=== PATIENT | female | born 1980 | race Caucasian/White ===

== ENCOUNTER 2017-09-21 06:32 | Day surgery (SDC) | payer MEDICARE, MEDICAID ==
[~2017-09-21 06:32] MED LIST: Lactated Ringers 1,000 ML IV SCH
[2017-09-21] MEDS ORDERED: Lactated Ringers 1,000 ML IV SCH (07:00)
[2017-09-21] MEDS ORDERED: fentaNYL 100 MCG/2 ML SDV ONE (07:42)
[2017-09-21] MEDS ORDERED: Midazolam 1 MG/ML 2 ML SDV ONE (07:42)
[2017-09-21] MEDS ORDERED: Propofol 200 MG/20 ML SDV ONE (07:42)
--- NOTE | 2017-09-21 08:28 | OR ---
DATE OF PROCEDURE: 09/21/2017 PREOPERATIVE DIAGNOSES: Nausea and vomiting. POSTOPERATIVE DIAGNOSES: Mild gastritis, nausea, and vomiting. PROCEDURE: Esophagogastroduodenoscopy with antral biopsies for CLOtest, sent for pathology to look for Helicobacter pylori. SURGEON: Noe Castañeda MD. ANESTHESIA: IV anesthesia with monitored anesthesia care. INDICATION: This 37-year-old white female is referred for upper endoscopy because of nausea and vomiting. She has had a cholecystectomy in the past. I counseled her for upper endoscopy with possible biopsy including risks and alternatives, and she gave her informed consent to proceed. PROCEDURE IN DETAIL: The patient was placed in the left lateral decubitus position. IV anesthesia was administered by the Anesthesia Service. Time-out was held. The flexible video Olympus upper endoscope was passed through her mouth, down her esophagus, and into her stomach. We did encounter bile in her stomach. We aspirated this free. The scope was passed through the pylorus into the duodenum reaching its third portion. The scope was then slowly withdrawn, examining the mucosa throughout. The duodenal mucosa appeared unremarkable. The scope was brought up through the pylorus; there was a fine erythema present and a couple areas of brighter erythema suggestive of mild gastritis. We obtained antral biopsies for CLOtest, sent tissue for pathology to look for Helicobacter pylori. The scope was retroflexed, the most proximal stomach appeared unremarkable. The scope was straightened and brought up to the GE junction. This appeared unremarkable. The scope was then brought up through the unremarkable appearing esophagus and was removed. She tolerated the procedure well. Noe Castañeda MD /[id number] MTDD
[2017-09-21 08:44] VITALS: BP 105/65
== END 2017-09-21 08:56 | disposition home or self-care (01) ==
LOC: JP.SDS 06:32
PROVIDERS: ATTEND Surgery
DX: K29.50 Unspecified chronic gastritis without bleeding (principal); K31.9 Disease of stomach and duodenum, unspecified; I10 Essential (primary) hypertension; E11.9 Type 2 diabetes mellitus without complications; E66.9 Obesity, unspecified; E03.9 Hypothyroidism, unspecified; F41.9 Anxiety disorder, unspecified; F32.9 Major depressive disorder, single episode, unspecified; Z88.8 Allergy status to other drugs, medicaments and biological substances
CPT/HCPCS: 43239; 81025; 82962; 87081; J2250; J2704; J3010; J7120; 88305; 88342

== ENCOUNTER 2018-10-26 16:53 | Emergency (ER) | payer MEDICARE, MEDICAID ==
[2018-10-26 17:06] VITALS: BP 138/85
--- NOTE | 2018-10-26 17:32 | EDM.PDOC ---
<Lorna Loyd N - Last Filed: 10/26/18 17:27> ED HPI GENERAL MEDICAL PROBLEM - General Chief Complaint: ENT Problem Stated Complaint: EARS HURT Time Seen by Provider: 10/26/18 17:20 Source of Information: Reports: Patient History Limitations: Reports: No Limitations - History of Present Illness INITIAL COMMENTS - FREE TEXT/NARRATIVE: Prabha is a 38-year-old female who presents to the ER with complaints of bilateral ear pressure, throbbing, and a sensation of fullness for the past 4-5 days. Reports a complicated history of ear infections in the past with tympanic tube placement as a child. She has been feeling well otherwise. Denies any acute changes in hearing or ear discharge. No fevers, chills, or upper respiratory symptoms. She has been taking Ibuprofen and acetaminophen with some relief of symptoms. 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 Bilateral Ear Pain Score (Numeric/FACES): 4 - Related Data Allergies Allergy/AdvReac Type Severity Reaction Status Date / Time codeine AdvReac Intermediate gi Verified 09/04/18 20:55 intolerance Home Meds: Home Meds Metoprolol Tartrate [Lopressor] 100 mg PO BID 06/26/13 [History] Levothyroxine Sodium 112 mcg PO DAILY 12/22/15 [History] Insulin Degludec [Tresiba Flextouch U-100] 96 units SUBCUT DAILY 01/14/16 [ History] Omeprazole 40 mg PO DAILY 01/14/16 [History] atorvaSTATin [Lipitor] 20 mg PO DAILY 01/14/16 [History] Lisinopril/Hydrochlorothiazide [Lisinopril-Hctz 20-12.5 mg Tab] 1 tab PO BID 12/18 [History] ARIPiprazole [Abilify] 15 mg PO DAILY 09/17/17 [History] Dulaglutide [Trulicity] 1.5 mg SQ WEEKLY 09/17/17 [History] Escitalopram [Lexapro] 10 mg PO DAILY 09/17/17 [History] Venlafaxine [Effexor XR] 150 mg PO DAILY 09/17/17 [History] Zolpidem Tartrate [Ambien] 5 mg PO ASDIRECTED PRN 09/17/17 [History] buPROPion HCl [Wellbutrin Xl] 1 tab PO DAILY 09/17/17 [History] clonazePAM [Clonazepam] 1 mg PO ASDIRECTED PRN 09/17/17 [History] lamoTRIgine [Lamictal] 200 mg PO DAILY 09/17/17 [History] Past Medical History HEENT History: Reports: Other (See Below) Other HEENT History: No teeth, has dentures, not in Cardiovascular History: Reports: High Cholesterol, Hypertension Respiratory History: Reports: Bronchitis, Recurrent Gastrointestinal History: Reports: Chronic Constipation, Colon Polyp, GERD, Other (See Below) Other Gastrointestinal History: constipation Genitourinary History: Reports: None 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 Musculoskeletal History: Reports: Back Pain, Chronic Neurological History: Reports: Migraines Psychiatric History: Reports: Anxiety, Bipolar, Depression, Panic Attack, Suicide Attempt, Suicidal Ideation Endocrine/Metabolic History: Reports: Diabetes, Type II, Hypothyroidism, IDDM, Obesity/BMI 30+ Hematologic History: Reports: Anemia - Infectious Disease History Infectious Disease History: Reports: Chicken Pox - Past Surgical History HEENT Surgical History: Reports: Myringotomy w Tube(s), Oral Surgery, Tonsillectomy Cardiovascular Surgical History: Reports: None Respiratory Surgical History: Reports: None GI Surgical History: Reports: Cholecystectomy, Colonoscopy Female Surgical History: Reports: Section Endocrine Surgical History: Reports: None Neurological Surgical History: Reports: Lumbar Spine Musculoskeletal Surgical History: Reports: None Social & Family History - Family History Family Medical History: Noncontributory - Tobacco Use Smoking Status *Q: Heavy Tobacco Smoker Years of Tobacco use: 16 Packs/Tins Daily: 1 - Caffeine Use Caffeine Use: Reports: Soda - Recreational Drug Use Recreational Drug Use: No - Living Situation & Occupation Living situation: Reports: with Significant Other ED ROS ENT - Review of Systems Review Of Systems: See Below Constitutional: Reports: No Symptoms. Denies: Fever, Chills, Malaise, Weakness , Decreased Appetite HEENT: Reports: Ear Pain. Denies: Ear Discharge, Eye Discharge, Hearing Loss, Rhinitis, Throat Pain, Vision Change Respiratory: Reports: No Symptoms. Denies: Shortness of Breath, Cough Cardiovascular: Reports: No Symptoms. Denies: Chest Pain, Palpitations Endocrine: Reports: No Symptoms GI/Abdominal: Reports: No Symptoms. Denies: Abdominal Pain, Constipation, Diarrhea, Decreased Appetite : Reports: No Symptoms Musculoskeletal: Reports: No Symptoms Neurological: Reports: No Symptoms Psychiatric: Reports: No Symptoms ED EXAM, ENT - Physical Exam Exam: See Below Exam Limited By: No Limitations General Appearance: Alert, WD/WN, No Apparent Distress Eye Exam: Bilateral Eye: EOMI, PERRL Ears: Normal External Exam, Normal Canal, Hearing Grossly Normal. No: Auricular Tenderness, Mastoid Swelling, Mastoid Tenderness, Canal Foreign Body Nose: Normal Inspection, Normal Mucousa, No Blood Mouth/Throat: Normal Inspection, Normal Gums, Normal Lips, Normal Oropharynx, Normal Teeth Head: Atraumatic, Normocephalic Neck: Normal Inspection, Supple, Non-Tender Respiratory/Chest: No Respiratory Distress, Decreased Breath Sounds Cardiovascular: Regular Rate, Rhythm, No Gallop, No Murmur, No Rub GI/Abdominal: Normal Bowel Sounds, Soft, Non-Tender, No Organomegaly, No Distention, No Abnormal Bruit, No Mass Neurological: Alert, Oriented, Normal Cognition, Normal Gait Psychiatric: Normal Affect, Normal Mood Lymphatic: No Adenopathy (Anterior and posterior cervical chains) Course - Vital Signs Last Recorded V/S: Last Vital Signs Temp 35.9 C 10/26/18 17:15 Pulse 62 10/26/18 17:15 Resp 16 10/26/18 17:15 BP 138/85 10/26/18 17:15 Pulse Ox 97 10/26/18 17:15 Departure - Departure Disposition: Home, Self-Care 01 Clinical Impression: Serous otitis media - Discharge Information Instructions: Otitis Media, Adult, [id number] Referrals: Kerrie Marin PA [Primary Care Provider] - Forms: ED Department Discharge Care Plan Goals: chew gum and try to move the drums, amoxicill 500mg qid, appt with ENt next sun. zyrtec 1 tab daily-- 10 mg. <Kika Olvera - Last Filed: 10/27/18 07:32> ED ROS ENT - Review of Systems Review Of Systems: See Below ED EXAM, ENT - Physical Exam Exam: See Below Course - Re-Assessments/Exams Free Text/Narrative Re-Assessment/Exam: 10/26/18 17:38 ears were checked and she did appear to have some purulent material behind the drum The drums did not look red, She does have swollen nodes under the ears. Her sinuses are not tender. Departure - Departure Time of Disposition: 17:40 Condition: Fair
== END 2018-10-26 17:46 | disposition home or self-care (01) ==
LOC: JP.ED 16:53
DX: H65.93 Unspecified nonsuppurative otitis media, bilateral (principal); E78.00 Pure hypercholesterolemia, unspecified; I10 Essential (primary) hypertension; F41.9 Anxiety disorder, unspecified; F32.9 Major depressive disorder, single episode, unspecified; E11.9 Type 2 diabetes mellitus without complications; E03.9 Hypothyroidism, unspecified; F17.210 Nicotine dependence, cigarettes, uncomplicated; Z88.5 Allergy status to narcotic agent; Z79.4 Long term (current) use of insulin
CPT/HCPCS: 99283

== ENCOUNTER 2019-05-02 21:54 | Emergency (ER) | payer MEDICARE, MEDICAID ==
[2019-05-02 22:14] VITALS: BP 110/69
--- NOTE | 2019-05-02 22:37 | EDM.PDOC ---
ED HPI GENERAL MEDICAL PROBLEM - General Chief Complaint: General Stated Complaint: DIABETIC Time Seen by Provider: 05/02/19 22:30 Source of Information: Reports: Patient History Limitations: Reports: No Limitations - History of Present Illness INITIAL COMMENTS - FREE TEXT/NARRATIVE: 31-year-old female with upper abdominal pain for the past couple of days. Also some persistent nausea and occasional vomiting. No diarrhea, actually she has chronic constipation and spent taking a laxative without relief salts. No fevers or chills. Pain is mostly across the upper abdomen and somewhat into the back. Onset: Unknown/Unsure Duration: Day(s): (Symptoms are chronic but worse the last few days) Location: Reports: Abdomen Worsens with: Reports: None Associated Symptoms: Reports: Malaise, Nausea/Vomiting. 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) Upper Abdomen Pain Score (Numeric/FACES): 4 - Related Data Allergies Allergy/AdvReac Type Severity Reaction Status Date / Time codeine AdvReac Intermediate gi Verified 05/02/19 22:12 intolerance Home Meds: Home Meds Metoprolol Tartrate [Lopressor] 100 mg PO BID 06/26/13 [History] Levothyroxine Sodium 112 mcg PO DAILY 12/22/15 [History] Insulin Degludec [Tresiba Flextouch U-100] 98 units SUBCUT DAILY 01/14/16 [ History] Omeprazole 40 mg PO DAILY 01/14/16 [History] atorvaSTATin [Lipitor] 20 mg PO DAILY 01/14/16 [History] Lisinopril/Hydrochlorothiazide [Lisinopril-Hctz 20-12.5 mg Tab] 1 tab PO BID 12/18 [History] Dulaglutide [Trulicity] 1.5 mg SQ WEEKLY 09/17/17 [History] Zolpidem Tartrate [Ambien] 5 mg PO ASDIRECTED PRN 09/17/17 [History] lamoTRIgine [Lamictal] 200 mg PO BID 09/17/17 [History] Amphetamine/Dextroamphetamine [Adderall XR] 30 mg PO DAILY 05/02/19 [History] Buprenorphine HCl/Naloxone HCl [Suboxone 4 mg-1 mg Sl Film] 1 each SL DAILY [History] Gabapentin [Neurontin] 300 mg PO TID PRN 05/02/19 [History] Loratadine [Claritin] 10 mg PO DAILY 05/02/19 [History] Metoclopramide HCl 10 mg PO QID 05/02/19 [History] Pregabalin [Lyrica] 100 mg PO QID 05/02/19 [History] metFORMIN HCl [Metformin HCl ER] 500 mg PO BID 05/02/19 [History] Past Medical History HEENT History: Reports: Other (See Below) Other HEENT History: No teeth, has dentures, not in Cardiovascular History: Reports: High Cholesterol, Hypertension Respiratory History: Reports: Bronchitis, Recurrent Gastrointestinal History: Reports: Chronic Constipation, Colon Polyp, GERD, Other (See Below) Other Gastrointestinal History: constipation Genitourinary History: Reports: None 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 Musculoskeletal History: Reports: Back Pain, Chronic Neurological History: Reports: Migraines Psychiatric History: Reports: Anxiety, Bipolar, Depression, Panic Attack, Suicide Attempt, Suicidal Ideation Endocrine/Metabolic History: Reports: Diabetes, Type II, Hypothyroidism, IDDM, Obesity/BMI 30+ Hematologic History: Reports: Anemia - Infectious Disease History Infectious Disease History: Reports: Chicken Pox - Past Surgical History HEENT Surgical History: Reports: Myringotomy w Tube(s), Oral Surgery, Tonsillectomy Cardiovascular Surgical History: Reports: None GI Surgical History: Reports: Cholecystectomy, Colonoscopy Female Surgical History: Reports: Section Endocrine Surgical History: Reports: None Neurological Surgical History: Reports: Lumbar Spine Musculoskeletal Surgical History: Reports: None Social & Family History - Family History Family Medical History: Noncontributory - Tobacco Use Smoking Status *Q: Current Every Day Smoker Years of Tobacco use: 20 Packs/Tins Daily: 0.5 Used Tobacco, but Quit: No Second Hand Smoke Exposure: Yes - Caffeine Use Caffeine Use: Reports: Soda - Alcohol Use Days Per Week of Alcohol Use: 0 - Recreational Drug Use Recreational Drug Use: Yes Recreational Drug Type: Reports: Marijuana/Hashish Recreational Drug Use Frequency: Monthly - Living Situation & Occupation Living situation: Reports: with Significant Other ED ROS GENERAL - Review of Systems Review Of Systems: See Below Constitutional: Reports: Malaise. Denies: Fever, Chills HEENT: Reports: No Symptoms Respiratory: Denies: Shortness of Breath Cardiovascular: Denies: Chest Pain GI/Abdominal: Reports: Abdominal Pain, Constipation, Nausea, Vomiting. Denies: Diarrhea : Reports: No Symptoms Neurological: Reports: Headache (Intermittent mild headache) Psychiatric: Reports: Anxiety, Depression ED EXAM, GENERAL - Physical Exam Exam: See Below Exam Limited By: No Limitations General Appearance: Alert, No Apparent Distress Eye Exam: Bilateral Eye: Normal Inspection Head: Atraumatic Respiratory/Chest: No Respiratory Distress, Lungs Clear Cardiovascular: Regular Rate, Rhythm GI/Abdominal: Soft (Some tenderness to), Tender (Some tenderness to palpation across the upper abdomen but no focal tenderness, guarding or rebound) Course - Vital Signs Last Recorded V/S: Last Vital Signs Temp 96.2 F 05/02/19 22:28 Pulse 69 05/02/19 22:28 Resp 16 05/02/19 22:28 BP 110/69 05/02/19 22:28 Pulse Ox 95 05/02/19 22:28 - Orders/Labs/Meds Labs: Laboratory Tests 05/02/19 05/02/19 05/02/19 Range/Units 22:40 22:40 22:47 WBC 12.7 H (4.5-11.0) K/uL RBC 4.42 (3.30-5.50) M/uL Hgb 13.4 D (12.0-15.0) g/dL Hct 41.4 (36.0-48.0) % MCV 94 (80-98) fL MCH 30 (27-31) pg MCHC 32 (32-36) % Plt Count 298 (150-400) K/uL Neut % (Auto) 49 (36-66) % Lymph % (Auto) 35 (24-44) % Rolette % (Auto) 10 H (2-6) % Eos % (Auto) 5 H (2-4) % Baso % (Auto) 1 (0-1) % Sodium 136 L (140-148) mmol/L Potassium 4.1 (3.6-5.2) mmol/L Chloride 99 L (100-108) mmol/L Carbon Dioxide 24 (21-32) mmol/L Anion Gap 17.1 H (5.0-14.0) mmol/L BUN 8 (7-18) mg/dL Creatinine 0.9 (0.6-1.0) mg/dL Est Cr Clr Drug Dosing 79.34 mL/min Estimated GFR (MDRD) > 60 (>60) Glucose 64 L (74-106) mg/dL Calcium 9.4 (8.5-10.1) mg/dL Total Bilirubin 0.3 D (0.2-1.0) mg/dL AST 28 (15-37) U/L ALT 32 (12-78) U/L Alkaline Phosphatase 129 H (46-116) U/L Total Protein 7.5 (6.4-8.2) g/dL Albumin 3.7 (3.4-5.0) g/dL Globulin 3.8 H (2.3-3.5) g/dL Albumin/Globulin Ratio 1.0 L (1.2-2.2) Urine Color Yellow (YELLOW) Urine Appearance Clear (CLEAR) Urine pH 6.0 (5.0-8.0) Ur Specific Rison 1.015 (1.008-1.030) Urine Protein Negative (NEGATIVE) mg/dL Urine Glucose (UA) 250 H (NEGATIVE) mg/dL Urine Ketones Negative (NEGATIVE) mg/dL Urine Occult Blood Negative (NEGATIVE) Urine Nitrite Negative (NEGATIVE) Urine Bilirubin Negative (NEGATIVE) Urine Urobilinogen Normal (0.2-1.0) EU/dL Ur Leukocyte Esterase Negative (NEGATIVE) Urine RBC 0-5 (0-5) Urine WBC 0-5 (0-5) Ur Epithelial Cells Few Amorphous Sediment Not seen Urine Bacteria Rare Urine Mucus Not seen Urine Opiates Screen (NEGATIVE) Ur Oxycodone Screen (NEGATIVE) Urine Methadone Screen (NEGATIVE) Ur Propoxyphene Screen (NEGATIVE) Ur Barbiturates Screen (NEGATIVE) Ur Tricyclics Screen (NEGATIVE) Ur Phencyclidine Scrn (NEGATIVE) Ur Amphetamine Screen (NEGATIVE) U Methamphetamines Scrn (NEGATIVE) Urine MDMA Screen (NEGATIVE) U Benzodiazepines Scrn (NEGATIVE) U Cocaine Metab Screen (NEGATIVE) U Marijuana (THC) Screen (NEGATIVE) 05/02/19 Range/Units 22:47 WBC (4.5-11.0) K/uL RBC (3.30-5.50) M/uL Hgb (12.0-15.0) g/dL Hct (36.0-48.0) % MCV (80-98) fL MCH (27-31) pg MCHC (32-36) % Plt Count (150-400) K/uL Neut % (Auto) (36-66) % Lymph % (Auto) (24-44) % Rolette % (Auto) (2-6) % Eos % (Auto) (2-4) % Baso % (Auto) (0-1) % Sodium (140-148) mmol/L Potassium (3.6-5.2) mmol/L Chloride (100-108) mmol/L Carbon Dioxide (21-32) mmol/L Anion Gap (5.0-14.0) mmol/L BUN (7-18) mg/dL Creatinine (0.6-1.0) mg/dL Est Cr Clr Drug Dosing mL/min Estimated GFR (MDRD) (>60) Glucose (74-106) mg/dL Calcium (8.5-10.1) mg/dL Total Bilirubin (0.2-1.0) mg/dL AST (15-37) U/L ALT (12-78) U/L Alkaline Phosphatase (46-116) U/L Total Protein (6.4-8.2) g/dL Albumin (3.4-5.0) g/dL Globulin (2.3-3.5) g/dL Albumin/Globulin Ratio (1.2-2.2) Urine Color (YELLOW) Urine Appearance (CLEAR) Urine pH (5.0-8.0) Ur Specific Rison (1.008-1.030) Urine Protein (NEGATIVE) mg/dL Urine Glucose (UA) (NEGATIVE) mg/dL Urine Ketones (NEGATIVE) mg/dL Urine Occult Blood (NEGATIVE) Urine Nitrite (NEGATIVE) Urine Bilirubin (NEGATIVE) Urine Urobilinogen (0.2-1.0) EU/dL Ur Leukocyte Esterase (NEGATIVE) Urine RBC (0-5) Urine WBC (0-5) Ur Epithelial Cells Amorphous Sediment Urine Bacteria Urine Mucus Urine Opiates Screen Negative (NEGATIVE) Ur Oxycodone Screen Negative (NEGATIVE) Urine Methadone Screen Negative (NEGATIVE) Ur Propoxyphene Screen Negative (NEGATIVE) Ur Barbiturates Screen Negative (NEGATIVE) Ur Tricyclics Screen Negative (NEGATIVE) Ur Phencyclidine Scrn Negative (NEGATIVE) Ur Amphetamine Screen Presumptive positive H (NEGATIVE) U Methamphetamines Scrn Negative (NEGATIVE) Urine MDMA Screen Negative (NEGATIVE) U Benzodiazepines Scrn Negative (NEGATIVE) U Cocaine Metab Screen Negative (NEGATIVE) U Marijuana (THC) Screen Presumptive positive H (NEGATIVE) - Re-Assessments/Exams Free Text/Narrative Re-Assessment/Exam: 05/02/19 23:04 CBC, CMP, UA and urine drug screen were obtained. 05/02/19 23:37 Patient needed no treatment while in the emergency room, she rested quietly while waiting for lab results. They were generally reassuring, slight elevation in alkaline phosphatase but all of the liver enzymes were normal. White count 12 ,700. Glucose 126, UA no evidence of infection. Patient was encouraged to continue her regular medications and consider talking to her primary provider next week about obtaining an EGD. Continue with stool softeners as needed. Departure - Departure Time of Disposition: 23:47 Disposition: Home, Self-Care 01 Condition: Good Clinical Impression: Abdominal pain Qualifiers: Abdominal location: upper abdomen, unspecified Qualified Code(s): R10.10 - Upper abdominal pain, unspecified - Discharge Information Instructions: Abdominal Pain, Adult, [id number] Referrals: Kerrie Marin PA [Primary Care Provider] - Forms: ED Department Discharge Care Plan Goals: Continue your current medications along with stool softeners. Increase diet as tolerated and recheck with your regular doctor next week if symptoms are persistent. Return to the emergency room if worsening such as fever or increased pain.
== END 2019-05-02 23:47 | disposition home or self-care (01) ==
LOC: JP.ED 21:54
DX: R10.10 Upper abdominal pain, unspecified (principal); E78.00 Pure hypercholesterolemia, unspecified; I10 Essential (primary) hypertension; F31.9 Bipolar disorder, unspecified; E11.9 Type 2 diabetes mellitus without complications; E03.9 Hypothyroidism, unspecified; F41.9 Anxiety disorder, unspecified; F17.210 Nicotine dependence, cigarettes, uncomplicated; Z88.5 Allergy status to narcotic agent; Z79.899 Other long term (current) drug therapy; Z79.4 Long term (current) use of insulin
CPT/HCPCS: 36415; 80053; 80305-QW; 81001; 85025; 99284

== ENCOUNTER 2022-06-27 09:03 | Day surgery (SDC) | payer MEDICARE, MEDICAID ==
[2022-06-27] MEDS ORDERED: fentaNYL 100 MCG/2 ML SDV ONE (09:09)
[2022-06-27] MEDS ORDERED: Propofol 200 MG/20 ML SDV ONE ×2 (09:09→11:14)
[2022-06-27] MEDS ORDERED: Midazolam 1 MG/ML 2 ML SDV ONE (09:09)
[2022-06-27] MEDS ORDERED: Lactated Ringers 1,000 ML IV SCH (09:30)
[2022-06-27] MEDS ORDERED: Dextrose 5%-Lactated Ringers 1,000 ML IV SCH (10:15)
[2022-06-27 12:14] VITALS: BP 121/86; PULSE 74
== END 2022-06-27 12:18 | disposition home or self-care (01) ==
LOC: JP.SDS 09:03
PROVIDERS: ATTEND Family Medicine
DX: K59.01 Slow transit constipation (principal); R11.15 Cyclical vomiting syndrome unrelated to migraine; R10.13 Epigastric pain; I10 Essential (primary) hypertension; F17.200 Nicotine dependence, unspecified, uncomplicated; E11.40 Type 2 diabetes mellitus with diabetic neuropathy, unspecified
CPT/HCPCS: 43235; 45378; 81025; J2250; J2704; J3010; J7121

== ENCOUNTER 2023-03-28 19:55 | Emergency (ER) | payer MEDICARE, MEDICAID ==
[2023-03-28 21:06] LABS: BASOPHILS ABSOLUTE AUTO 0.07 K/uL (0.00-0.10); BASOPHILS PERCENT AUTO 0.5 % (0.1-1.3); EOSINOPHILS ABSOLUTE AUTO 0.47 K/uL (0.00-0.40); EOSINOPHILS PERCENT AUTO 3.2 % (0.0-5.4); HEMATOCRIT 39.5 % (34.3-46.0); HEMOGLOBIN 13.2 g/dL (11.2-15.5); IMMATURE GRAN ABSOLUTE AUTO 0.07 K/uL (0.00-0.23); IMMATURE GRAN PERCENT AUTO 0.5 % (0.0-0.7); LYMPHOCYTES ABSOLUTE AUTO 3.81 K/uL (0.8-3.3); LYMPHOCYTES PERCENT AUTO 25.6 % (11.4-47.7); MEAN CORPUSCULAR HEMOGLOBIN 31.1 pg (31.6-35.5); MEAN CORPUSCULAR HGB CONC 33.4 g/dL (31.6-35.5); MEAN CORPUSCULAR VOLUME 93.2 fL (81.4-99.0); MONOCYTES ABSOLUTE AUTO 0.94 K/uL (0.20-0.90); MONOCYTES PERCENT AUTO 6.3 % (3.3-12.6); NEUTROPHILS ABSOLUTE AUTO 9.51 K/uL (1.0-7.6); NEUTROPHILS PERCENT AUTO 63.9 % (40.0-78.1); RED BLOOD CELL COUNT 4.24 M/uL (3.77-5.24); WHITE BLOOD CELL COUNT,WBC 14.9 K/uL (3.2-11.0)
[2023-03-28 21:20] LABS: PLATELET COUNT,PLT 300 K/uL (130-375)
[2023-03-28 21:23] LABS: A/G RATIO 0.9 (1.2-2.2); ALANINE AMINOTRANSFERASE,ALT 30 U/L (12-78); ALBUMIN 3.6 g/dL (3.4-5.0); ALKALINE PHOSPHATASE 134 U/L (46-116); ANION GAP 17.2 mmol/L (5.0-14.0); ASPARTATE AMNIOTRANSFERASE,AST 31 U/L (15-37); BILIRUBIN TOTAL 0.2 mg/dL (0.2-1.0); BLOOD UREA NITROGEN,BUN 11 mg/dL (7-18); CALCIUM 8.9 mg/dL (8.5-10.1); CARBON DIOXIDE,CO2 21 mmol/L (21-32); CHLORIDE,CL 105 mmol/L (100-108); CREATININE 0.7 mg/dL (0.6-1.0); EST CRCL DRUG DOSING (CG) 99.01 mL/min; ESTIMATED GFR 111 mL/min (>60); GLUCOSE RANDOM 84 mg/dL (74-106); POTASSIUM,K 4.2 mmol/L (3.6-5.2); PROTEIN TOTAL,TP 7.8 g/dL (6.4-8.2); SODIUM,NA 139 mmol/L (140-148)
[2023-03-28 22:43] VITALS: BP 134/94; PULSE 96
[2023-03-28] MEDS ORDERED: HYDROmorphone 1 MG/ML Syringe IM ONE (23:15)
== END 2023-03-28 23:38 | disposition home or self-care (01) ==
LOC: JP.ED 19:55
DX: E11.43 Type 2 diabetes mellitus with diabetic autonomic (poly)neuropathy (principal); K31.84 Gastroparesis; E78.00 Pure hypercholesterolemia, unspecified; I10 Essential (primary) hypertension; K21.9 Gastro-esophageal reflux disease without esophagitis; E66.9 Obesity, unspecified; Z88.5 Allergy status to narcotic agent; Z79.899 Other long term (current) drug therapy; Z72.0 Tobacco use; Z68.28 Body mass index [BMI] 28.0-28.9, adult
CPT/HCPCS: 36415; 74176; 80053; 83690; 85025; 96372; 99284; J1170